=== PATIENT | male | born 1945 | race Caucasian/White ===

== ENCOUNTER → 2023-05-13 11:39 | Outpatient (REF) | payer MEDICARE, OTHER, SELFPAY ==
[2023-05-13 12:43] LABS: Blood Urea Nitrogen 18 mg/dl (9-20); Calcium 9.3 mg/dl (8.4-10.2); Carbon Dioxide 24 mmol/L (22-30); Chloride 106 mmol/L (98-107); Glucose 102 mg/dl (70-99); Potassium 5.3 mmol/L (3.5-5.1); Sodium 136 mmol/L (135-145); eGFR 56.23
== END ==
LOC: REG 11:39
PROVIDERS: ATTENDING PHYSICIAN Internal Medicine Cardiovascular Disease; FAMILY PHYSICIAN Family Medicine
DX: I50.20 Unspecified systolic (congestive) heart failure (principal)
CPT/HCPCS: 36415; 80048

== ENCOUNTER → 2023-08-11 09:40 | Outpatient (REF) | payer MEDICARE, OTHER, SELFPAY ==
[2023-08-11 11:11] LABS: Blood Urea Nitrogen 24 mg/dl (9-20); Calcium 9.2 mg/dl (8.4-10.2); Carbon Dioxide 25 mmol/L (22-30); Chloride 107 mmol/L (98-107); Glucose 106 mg/dl (70-99); Potassium 4.9 mmol/L (3.5-5.1); Sodium 140 mmol/L (135-145); eGFR 43.83
== END ==
LOC: REG 09:40
PROVIDERS: ATTENDING PHYSICIAN Internal Medicine Cardiovascular Disease; FAMILY PHYSICIAN Family Medicine
DX: I50.20 Unspecified systolic (congestive) heart failure (principal)
CPT/HCPCS: 36415; 80048

== ENCOUNTER → 2023-09-20 12:58 | Outpatient (REF) | payer MEDICARE, OTHER, SELFPAY | LOC: RCS 12:58 | PROVIDERS: ATTENDING PHYSICIAN Internal Medicine Cardiovascular Disease; FAMILY PHYSICIAN Family Medicine | DX: I50.20 Unspecified systolic (congestive) heart failure (principal) | CPT/HCPCS: 93306; Q9950 ==

== ENCOUNTER 2023-11-19 05:52 | Day surgery (SDC) | payer MEDICARE, OTHER, SELFPAY ==
[2023-10-27 09:20] VITALS: BMI 35.8
[2023-11-19] VITALS (9 sets, daily range): BP systolic 117–153; BP diastolic 66–79; BMI 35.6; BMI 35.2
[2023-11-19] MEDS: VANCOCIN 300 MG IV (06:59)
[2023-11-19] MEDS: VANCOCIN 300 ML IV (06:59)
--- NOTE | 2023-11-19 07:24 | W.ICD.CONTRA ---
Post ICD/LAST SORTER-D
-
History of IL?: No
LV Function
Left ventricular function study result?: Ejection Fraction </= 35%
ACEI/ARB/ARNI
Patient already on ACEI/ARB/ARNI: Yes
Beta-Stewart
Patient already on Beta Stewart: Yes
--- NOTE | 2023-11-19 12:52 | CM ---
Reviewed chart. Met with Mr. Lanza to review discharge plans. He states prior to admission he resides with his spouse in a three story condo. He states he has a full flight of steps to get to bedroom/full bathroom. He states he has a powder room
on the first floor. He states prior to admission he was independent with ambulation and adls. He states he does not have any DME in the home. He states he has a prescription plan and uses [facility]. Medical work-up in progress. The discharge
plan is to return home with his spouse when medically stable.
--- NOTE | 2023-11-19 17:15 | ITS.CL.ICD ---
Electrical Design Technician - ICD
Implantable Cardioverter Defibrillator
Procedure Report:
Date of Procedure: November 19, 2023.
Procedures: Bi-Ventricular ICD implant: Left Ventricular Lead placement, ICD implantation.
Indication: Class III CHF, LVEF 30-35%, 2) Bundle Branch Block, QRS 152 ms; 3) The patient's life expectancy exceeds one year. Heart failure duration just over 1.5 years.
Performing physician: Roque Encarnacion MD, [facility].
Implants:
Pulse Generator: Medtronic; Model# [id number]; Serial# [id number].
Atrial Lead: Medtronic: Model# 5076-52cm; Serial# [id number].
Right Ventricular Lead: Medtronic; Model# [id number]; Serial# [id number].
Left Ventricular Lead: Medtronic; Model# 4298-88cm; Serial# [id number].
Technique: A time out was performed. A 10 mL upper extremity venogram demonstrated patent left cephalic, axillary, and subclavian veins. The procedure site was identified. The patient was anesthetized by the anesthesia service. Preoperative
antibiotic per protocol was administered. The patient was prepped and draped in the usual fashion. Local anesthetic was applied to the left prepectoral subcutaneous tissue. A 3 inch incision was made along the left deltopectoral groove. Dissection
was carried to the fascia. The left cephalic vein was easily isolated and proximal and distal control with 2-0 Vicryl suture. Using a micropuncture needle to access the cephalic vein under direct visualization a wire was advanced into the central
circulation. A 7 Fr introducer was placed to allow two additional 0.35 J wires to be advanced and a retained guidewire technique was employed. The leads were introduced with hemostatic peel away introducer sheaths. The ventricular lead was placed
at the right ventricular mid septum. The ventricular lead was secured to the pectoralis muscle and fascia with two 0-silk sutures. The atrial lead was then placed in the right atrial appendage. The atrial lead was secured to the pectoralis muscle
and fascia with two 0-silk sutures. The coronary sinus was accessed with the aid of the Attain Command Sure Valve [id number] system with an extended hook. Coronary sinus venography revealed a lateral vein. The left ventricular lead was placed in the
lateral vein. The LV lead was secured to the pectoralis muscle and fascia. 8 volt pacing did not capture the diaphragm from any lead. A subcutaneous pocket was created with Bovie cautery. Hemostasis was excellent.The leads were appropriately
attached to the device. The pocket was irrigated with antibiotic solution. The device and leads were placed in the pocket. The incision was closed in three layers with absorbable suture. Steri-strips and an Aquacel dressing were placed. Estimated
blood loss: less than 5 ml. There were no complications. Fluoroscopy: 11.4 minutes and DAP 13.7 mGCM2. The device was then interrogated after skin closure.
System Analysis:
RA lead: P: 2.3 mV; Threshold: 0.7 V @ 0.4 ms; Impedance: 475 ohms.
RV lead: R: 12mV; Threshold: 0.6 V @ 0.4 ms; Impedance: 420 ohms.
LV lead (LV5=>LV3): R: 7 mV; Threshold: 0.75 V @ 0.4 ms; Impedance: 670 ohms.
There are multiple good vectors to choose from for LV pacing.
Final Programming: Tachy: VT/VF:188 bpm; Zachary: DDDR 60-120 bpm.
Conclusion: Uncomplicated Biventricular ICD implant. The BiV ICD system is MRI safe/conditional.
Recommendation: Routine post BiV ICD care.
cc: Zoe Murillo M.D.
[2023-11-19] MEDS: COREG 25 MG PO (20:44)
[2023-11-20 05:13] VITALS: BP 151/66
[2023-11-20 05:22] VITALS: BMI 35.2
[2023-11-20 05:40] LABS: Hematocrit 36.4 % (39.0-52.0); Hemoglobin 12.6 g/dL (13.0-18.0); Mean Corp Hgb Conc. 34.6 g/dL (33.0-37.0); Mean Corpuscular Hgb 30.2 pg (27.0-31.0); Mean Corpuscular Volume 87.3 fL (80.0-94.0); Mean Platelet Volume 10.5 fL (7.4-10.4); Platelet Count 157 10^3/uL (130-400); Red Blood Cell Count 4.17 10^6/uL (4.70-6.10); White Blood Cell Count 13.8 10^3/uL (4.8-10.8)
[2023-11-20 06:08] LABS: Blood Urea Nitrogen 23 mg/dl (9-20); Calcium 9.6 mg/dl (8.4-10.2); Carbon Dioxide 22 mmol/L (22-30); Chloride 105 mmol/L (98-107); Estimated Creatinine Clearance 60 ml/min; Glucose 126 mg/dl (70-99); Magnesium 1.9 mg/dl (1.6-2.3); Potassium 4.9 mmol/L (3.5-5.1); Sodium 139 mmol/L (135-145); eGFR 56.23
[2023-11-20] MEDS: COREG 25 MG PO (07:41)
[2023-11-20] MEDS: FLOMAX 0.4 MG PO (07:41)
[2023-11-20] MEDS: INSPRA 12.5 MG PO (07:41)
[2023-11-20] MEDS: ZESTRIL 40 MG PO (07:41)
[2023-11-20] MEDS: PROSCAR 5 MG PO (07:42)
[2023-11-20] MEDS: LOW STRENGTH ASPIRIN 81 MG PO (07:42)
[2023-11-20] MEDS: PROTONIX 40 MG PO (07:42)
[2023-11-20 08:17] VITALS: BP 135/57
--- NOTE | 2023-11-20 08:19 | PTCARENOTE ---
Assumed care. Patient in the chair. Left arm immobilizer, left chest wall pressure dressing dry and intact. V paced with underlying A-Fib with occasional PVC's. Denies pain or shortness of breath. Does report orthopnea improved overnight. VSS, call
garcia in reach
--- NOTE | 2023-11-20 09:08 | W.PN.UPDATE ---
Addendum entered and electronically signed by Mark Burch MD 11/20/23 13:40:
Patient seen and evaluated personally. Status post ANATOMIC PATHOLOGY ASSISTANT-D.
Chest x-ray shows no pneumothorax. EKG stays stable. Currently a sensed V paced rhythm.
Stable for discharge.
Original Note:
Update Note
Progress Note Update
Pt. s/p ANATOMIC PATHOLOGY ASSISTANT-D. Incision site stable. Pressure dressing removed. CXR no pneumothorax. Tele stable. No complaints.
EKG ASVP 71 bpm, PVC's
AAOx 3
Lungs clear
S1 S2 reg
No LE edema
L pectoral with dressing intact, no hematoma
d/c home
--- NOTE | 2023-11-20 09:13 | W.DS.TRANS ---
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
-
Discharge Instructions:
Discharge Diagnosis/Procedures Heart failure, post BiV ICD
Diet Low Cholesterol,2 Gram Sodium
Driving Restrictions No driving for 1 week
Bathing Restrictions OK to Shower
Specialty Instructions Weigh Daily
Instructions: *CBC Heart Failure Instructions
Stand-Alone Forms: DC Inst - Implanted Device
Changes to Home Medications: No
Discharge Medications:
DC Medications w/original date entered in [employer]
omeprazole magnesium 20 mg tablet,delayed release (Prilosec OTC) 20 mg PO DAILY Gastrointestinal issue 09/19/09
finasteride 5 mg tablet 5 mg PO DAILY Urinary issue 03/06/21
tamsulosin 0.4 mg capsule 0.4 mg PO DAILY Urinary issue 03/06/21
aspirin 81 mg chewable tablet 81 mg PO DAILY 07/30/22
furosemide 20 mg tablet 20 mg PO PRN PRN edema/fluid retention 07/30/22
B-complex with vitamin C 1 cap PO DAILY 10/26/23
Vitamin D3 1 cap PO DAILY 10/26/23
carvedilol 25 mg tablet 25 mg PO BID 10/26/23
lisinopril 40 mg tablet 40 mg PO DAILY 10/26/23
coenzyme Q10 100 mg capsule (CoQ-10) 100 mg PO DAILY 11/19/23
eplerenone 25 mg tablet 12.5 mg PO DAILY 11/19/23
Home Medication Changes
Pending Results: No
--- NOTE | 2023-11-20 10:13 | PTCARENOTE ---
Patient discharged to home, instructions given, verbalized understanding. IV and telemetry removed. Patient escorted to main lobby, driving is driving him home.
== END 2023-11-20 10:01 | disposition home or self-care (01) ==
LOC: CATH 05:52
PROVIDERS: Nurse Practitioner Adult Health; ATTENDING PHYSICIAN Internal Medicine Cardiovascular Disease; FAMILY PHYSICIAN Family Medicine
DX: I13.0 Hypertensive heart and chronic kidney disease with heart failure and stage 1 through stage 4 chronic kidney disease, or unspecified chronic kidney disease (principal); I50.22 Chronic systolic (congestive) heart failure; I44.7 Left bundle-branch block, unspecified; I42.8 Other cardiomyopathies; N18.31 Chronic kidney disease, stage 3a; I47.20 Ventricular tachycardia, unspecified; I35.1 Nonrheumatic aortic (valve) insufficiency; E78.5 Hyperlipidemia, unspecified; E66.9 Obesity, unspecified; Z68.35 Body mass index [BMI] 35.0-35.9, adult; N40.0 Benign prostatic hyperplasia without lower urinary tract symptoms; K21.9 Gastro-esophageal reflux disease without esophagitis; Z85.820 Personal history of malignant melanoma of skin; Z87.891 Personal history of nicotine dependence; Z79.82 Long term (current) use of aspirin
CPT/HCPCS: 33249; 33225; C1892; C1769; C1887; 71045; 80048; 83735; 85027; 93005; C1777; C1882; C1898; C1900; Q9967

== ENCOUNTER 2023-11-26 10:30 | Emergency (ER) | payer MEDICARE, OTHER, SELFPAY ==
[2023-11-26 10:36] VITALS: BP 147/73
[2023-11-26 10:55] VITALS: BP 154/81
[2023-11-26 11:00] VITALS: BP 142/68
[2023-11-26] MEDS: OFIRMEV 100 IV (11:29)
[2023-11-26 11:33] LABS: % Basophils 0.6 % (0-2); % Eosinophils 2.3 % (0-6); % Immature Granulocytes 0.9 % (0-0.5); % Lymphocytes 13.4 % (20.5-51.1); % Monocytes 7.4 % (1.7-9.3); % Neutrophils 75.4 % (42.2-75.2); Absolute Basophils 0.1 10^3/uL (0-0.2); Absolute Eosinophils 0.3 10^3/uL (0-0.7); Absolute Immature Granulocytes 0.1 10^3/uL (0-0.05); Absolute Lymphocytes 1.4 10^3/uL (1.2-3.4); Absolute Monocytes 0.8 10^3/uL (0.1-0.6); Hematocrit 39.3 % (39.0-52.0); Hemoglobin 13.5 g/dL (13.0-18.0); Mean Corp Hgb Conc. 34.4 g/dL (33.0-37.0); Mean Corpuscular Volume 90.3 fL (80.0-94.0); Mean Platelet Volume 10.1 fL (7.4-10.4); Nucleated Red Blood Cells % 0 % (-); Platelet Count 144 10^3/uL (130-400); Red Blood Cell Count 4.35 10^6/uL (4.70-6.10); Red Cell Dist. Width 13.9 % (11.5-14.5); White Blood Cell Count 10.7 10^3/uL (4.8-10.8)
[2023-11-26 11:44] LABS: INR 1.09
[2023-11-26 11:51] LABS: Blood Urea Nitrogen 22 mg/dl (9-20); Calcium 9.5 mg/dl (8.4-10.2); Carbon Dioxide 26 mmol/L (22-30); Chloride 104 mmol/L (98-107); Glucose 123 mg/dl (70-99); Potassium 5.6 mmol/L (3.5-5.1); Sodium 140 mmol/L (135-145); eGFR 51.45
[2023-11-26 12:00] VITALS: BP 161/71
--- NOTE | 2023-11-26 12:29 | W.PN.UPDATE ---
Update Note
Progress Note Update
EP Note:
Old expected ecchymosis. New small hematoma started today. Incision line looks very good. Skin is not tight. Pain better after IV Acetominophen. CXR good. ICD check ([facility]) pending. Pressure being applied. If hematoma does not significantly
expand and pain remains acceptable I feel that he can go home. Will arrange f/u in our office.
[2023-11-26 13:00] VITALS: BP 160/74
[2023-11-26 13:09] LABS: Potassium 5.4 mmol/L (3.5-5.1)
[2023-11-26 14:00] VITALS: BP 160/67
--- NOTE | 2023-11-26 14:35 | ED.GENMED ---
History of Present Illness
General
Chief Complaint: Post Operative Problem(s)
Time Seen by Provider: 11/26/23 10:59
History of Present Illness
History of Present Illness:
Pacemaker placed 1 week ago. Was doing well till this morning when he developed sudden pain and swelling at the site. No shortness of breath no lightheadedness no syncope
Past History
Past History
ED Past Medical History: Asthma, GERD and HTN
ED Past Surgical History: None
Social History
Tobacco: Former smoker
Alcohol: Occasional
Personal:
Living: with family
Phy Exam
Physical Exam
Physical Exam:
GENERAL: Alert and oriented in no apparent distress
EYE: Orbits normal.
NECK: Supple
CARDIAC: Regular rate and rhythm without any obvious murmurs. Pacemaker with Steri-Strips left upper chest wall. Surrounding ecchymosis in various stages of healing with moderate-sized hematoma to the left upper anterior chest wall extending
towards the axilla
LUNGS: Clear breath sounds,normal
ABDOMEN: Soft, without focal tenderness or distention
NEUROLOGICAL: Alert and oriented , grossly non-focal
SKIN: Warm and dry, no rash or lesion, no discoloration, skin intact.
MUSCULOSKELETAL: No edema,no deformity.Good color
PSYCH: Normal and appropriate interaction.
Course
Orders/Labs/Results
Orders:
Orders
11/26/23 11:09
IV Insert/Care/Rem.- Treatment PRN
Acetaminophen 1000MG/100Ml [Ofirmev] 1,000 mg in 100 ml IV ONCE
Acetaminophen IV Indication:: ED Narcotic Naive Pt-ONCE
11/26/23 11:10
Cardiac Monitoring- Treatment ONCE
IV Insert/Care/Rem.- Treatment PRN
11/26/23 11:11
CXR Port [CR Chest Portable - 1 View] Urgent
Comment:
Reason For Exam: Pacer placement. Local hematoma
Reason Study Needs to be Portable: Unable to Transport
11/26/23 11:22
Basic Metabolic Panel Urgent
Complete Blood Count/With Diff Urgent
PTT Urgent
Prothrombin Time Urgent
11/26/23 11:23
Type+Screen Urgent
11/26/23 12:34
Potassium Urgent
Abnormal Lab Results
11/26/23 11/26/23
11:22 12:34
RBC 4.35 L 10^6/uL
(4.70-6.10)
Abs Immat Gran (auto) 0.1 H 10^3/uL
(0-0.05)
Absolute Neuts (auto) 8.0 H 10^3/uL
(1.4-6.5)
Absolute Monos (auto) 0.8 H 10^3/uL
(0.1-0.6)
Immature Gran % 0.9 H %
(0-0.5)
Neutrophils % 75.4 H %
(42.2-75.2)
Lymphocytes % 13.4 L %
(20.5-51.1)
Potassium 5.6 H mmol/L 5.4 H mmol/L
(3.5-5.1) (3.5-5.1)
BUN 22 H mg/dl
(9-20)
Creatinine 1.4 H mg/dL
(0.7-1.3)
Glucose 123 H mg/dl
(70-99)
11/26/23 11:22
11/26/23 12:34
Vital Signs
Initial and Last Documented VS:
Initial Vital Signs
Temp Pulse Resp BP Pulse Ox
98.4 F 72 18 147/73 96
11/26/23 10:36 11/26/23 10:36 11/26/23 10:36 11/26/23 10:36 11/26/23 10:36
Last Documented Vital Signs
Temp Pulse Resp BP Pulse Ox
98.4 F 64 12 160/67 97
11/26/23 10:36 11/26/23 14:00 11/26/23 14:00 11/26/23 14:00 11/26/23 14:00
*Critical Care Note
Total Time (30-74mins, 75-104mins- exclusive of procedures): Not Applicable
Update Note
Update Note:
Take pacemaker interrogation functioning normally. Patient is remained stable. No progressive hematoma. Pain is minimal at this time. Cleared by EP for discharge. Potassium minimally elevated. Has been elevated in the past and self resolved.
Will monitor this as an outpatient
ED Attending Note
-
Portions of this chart may have been created with voice recognition software.� Occasional wrong word or��sound alike� substitutions may have occurred due to the inherent limitations of voice recognition software.
Discharge Plan
Departure
Patient Disposition: Home (Routine Discharge)
Date of Disposition: 11/26/23
Time of Disposition: 14:36
Patient with high blood pressure during this ER visit?: Yes
Discharge Problem:
Pacemaker hematoma, Mild hyperkalemia
Instructions: Bleeding After Surgery, Hyperkalemia, BLOOD PRESSURE
Prescriptions:
No Action
omeprazole magnesium [Prilosec OTC] 20 MG tablet,delayed release (DR/EC)
20 mg PO DAILY
tamsulosin 0.4 MG capsule
0.4 mg PO DAILY
finasteride 5 MG tablet
5 mg PO DAILY
aspirin 81 mg Tablet,Chewable
81 mg PO DAILY
furosemide 20 mg Tablet
20 mg PO PRN PRN (Reason: edema/fluid retention)
carvedilol 25 mg Tablet
25 mg PO BID
lisinopril 40 mg Tablet
40 mg PO DAILY
B-complex with vitamin C Capsule
1 cap PO DAILY
Vitamin D3
1 cap PO DAILY
eplerenone 25 mg Tablet
12.5 mg PO DAILY
coenzyme Q10 [CoQ-10] 100 mg Capsule
100 mg PO DAILY
Referrals:
Zoe Murillo MD [Family Provider] - Follow up in 2-3 days
Activity Restrictions/Additional Instructions:
Follow-up next week with cardiology
Get your potassium level repeated in 4 to 5 days
Avoid foods with significant potassium and stay well-hydrated
Ice to the chest wall
Return sooner with increased pain increased swelling fever shortness of breath chest pain lightheadedness or any other concerning symptoms
Interventions
Interventions:
*Risk Screen - Suicide Last Done: 11/26/23 10:36
*General Assessment Last Done: 11/26/23 10:36
*Neglect/Abuse Screening Last Done: 11/26/23 10:36
ED- Fall Risk Assessment Last Done: 11/26/23 10:59
*ED COVID-19 Vaccine History Last Done: 11/26/23 10:57
ED-Skin Assessment Last Done: 11/26/23 10:57
Discharge Date and Time
Print Language: GUYANESE
== END 2023-11-26 15:00 | disposition home or self-care (01) ==
LOC: EMR 10:30
PROVIDERS: EMERGENCY PHYSICIAN Emergency Medicine; FAMILY PHYSICIAN Family Medicine
DX: S20.219A Contusion of unspecified front wall of thorax, initial encounter (principal); E87.5 Hyperkalemia; Y71.2 Prosthetic and other implants, materials and accessory cardiovascular devices associated with adverse incidents; J45.909 Unspecified asthma, uncomplicated; K21.9 Gastro-esophageal reflux disease without esophagitis; I10 Essential (primary) hypertension; Z87.891 Personal history of nicotine dependence; Z95.810 Presence of automatic (implantable) cardiac defibrillator
CPT/HCPCS: 99283; 96374; 71045; 80048; 84132; 85025; 85610; 85730; 86850; 86900; 86901

== ENCOUNTER → 2023-12-17 09:55 | Outpatient (REF) | payer MEDICARE, OTHER, SELFPAY ==
[2023-12-17 11:04] LABS: % Basophils 0.8 % (0-2); % Eosinophils 3.4 % (0-6); % Immature Granulocytes 0.6 % (0-0.5); % Lymphocytes 24.1 % (20.5-51.1); % Monocytes 7.3 % (1.7-9.3); % Neutrophils 63.8 % (42.2-75.2); Absolute Basophils 0.1 10^3/uL (0-0.2); Absolute Eosinophils 0.3 10^3/uL (0-0.7); Absolute Immature Granulocytes 0.1 10^3/uL (0-0.05); Absolute Lymphocytes 1.9 10^3/uL (1.2-3.4); Absolute Monocytes 0.6 10^3/uL (0.1-0.6); Absolute Neutrophils 5.1 10^3/uL (1.4-6.5); Hematocrit 39.5 % (39.0-52.0); Hemoglobin 13.2 g/dL (13.0-18.0); Mean Corp Hgb Conc. 33.4 g/dL (33.0-37.0); Mean Corpuscular Hgb 30.1 pg (27.0-31.0); Mean Corpuscular Volume 90.2 fL (80.0-94.0); Mean Platelet Volume 10.3 fL (7.4-10.4); Nucleated Red Blood Cells % 0 % (-); Platelet Count 166 10^3/uL (130-400); Red Blood Cell Count 4.38 10^6/uL (4.70-6.10)
[2023-12-17 11:21] LABS: NT-proBNP 604 pg/ml
[2023-12-17 11:55] LABS: Blood Urea Nitrogen 24 mg/dl (9-20); Glucose 98 mg/dl (70-99)
[2023-12-17 11:56] LABS: ALT (SGPT) 17 U/L (0-50); AST (SGOT) 19 U/L (17-59); Albumin 4.2 g/dl (3.5-5.0); Alkaline Phosphatase 59 U/L (38-126); Calcium 9.4 mg/dl (8.4-10.2); Carbon Dioxide 26 mmol/L (22-30); Chloride 104 mmol/L (98-107); HDL Cholesterol 27 mg/dl; LDL Cholesterol, Calculated 107 mg/dl; Potassium 5.2 mmol/L (3.5-5.1); Sodium 140 mmol/L (135-145); Total Bilirubin 0.5 mg/dl (0.2-1.3); Total Cholesterol 170 mg/dl (50-199); Total Protein 6.5 g/dl (6.3-8.2); Triglyceride 184 mg/dl (10-149); Very Low Density Lipoprotein 36 mg/dl (0-30); eGFR 43.83
[2023-12-17 12:22] LABS: PSA, Total - Screen 0.64 ng/ml (0.0-4.0); TSH 1.32 uIU/ml (0.47-4.68)
[2023-12-17 13:58] LABS: Glycohemoglobin (HgbA1c) 5.5 % (4.0-5.6)
== END ==
LOC: REG 09:55
PROVIDERS: ATTENDING PHYSICIAN Internal Medicine Cardiovascular Disease; FAMILY PHYSICIAN Family Medicine
DX: I50.20 Unspecified systolic (congestive) heart failure (principal); Z00.00 Encounter for general adult medical examination without abnormal findings; I42.8 Other cardiomyopathies; I10 Essential (primary) hypertension; E78.2 Mixed hyperlipidemia; Z13.29 Encounter for screening for other suspected endocrine disorder; Z12.5 Encounter for screening for malignant neoplasm of prostate; R73.01 Impaired fasting glucose
CPT/HCPCS: 36415; 80053; 80061; 83036; 83880; 84443; 85025; G0103

== ENCOUNTER → 2024-01-10 14:38 | Outpatient (REF) | payer MEDICARE, OTHER, SELFPAY | LOC: HWRAD 14:38 | PROVIDERS: ATTENDING PHYSICIAN Specialist; FAMILY PHYSICIAN Family Medicine | DX: N18.30 Chronic kidney disease, stage 3 unspecified (principal) | CPT/HCPCS: 76770 ==

== ENCOUNTER → 2024-03-08 12:37 | Outpatient (REF) | payer MEDICARE, OTHER, SELFPAY | LOC: HWRAD 12:37 | PROVIDERS: ATTENDING PHYSICIAN Internal Medicine Critical Care Medicine; FAMILY PHYSICIAN Family Medicine | DX: R06.09 Other forms of dyspnea (principal); R91.8 Other nonspecific abnormal finding of lung field; R93.89 Abnormal findings on diagnostic imaging of other specified body structures | CPT/HCPCS: 71250 ==

== ENCOUNTER → 2024-03-15 10:55 | Outpatient (REF) | payer MEDICARE, OTHER, SELFPAY ==
[2024-03-15 12:06] LABS: % Basophils 0.7 % (0-2); % Eosinophils 2.7 % (0-6); % Immature Granulocytes 0.3 % (0-0.5); % Lymphocytes 23.3 % (20.5-51.1); % Monocytes 8.4 % (1.7-9.3); % Neutrophils 64.6 % (42.2-75.2); Absolute Basophils 0.1 10^3/uL (0-0.2); Absolute Eosinophils 0.2 10^3/uL (0-0.7); Absolute Monocytes 0.7 10^3/uL (0.1-0.6); Absolute Neutrophils 5.6 10^3/uL (1.4-6.5); Hematocrit 44.8 % (39.0-52.0); Hemoglobin 15.1 g/dL (13.0-18.0); Mean Corp Hgb Conc. 33.7 g/dL (33.0-37.0); Mean Corpuscular Hgb 29.2 pg (27.0-31.0); Mean Corpuscular Volume 86.7 fL (80.0-94.0); Mean Platelet Volume 10.8 fL (7.4-10.4); Nucleated Red Blood Cells % 0 % (-); Platelet Count 165 10^3/uL (130-400); Red Blood Cell Count 5.17 10^6/uL (4.70-6.10); Red Cell Dist. Width 14.1 % (11.5-14.5); White Blood Cell Count 8.6 10^3/uL (4.8-10.8)
[2024-03-15 12:54] LABS: NT-proBNP 182 pg/ml
[2024-03-15 12:56] LABS: Blood Urea Nitrogen 24 mg/dl (9-20); Calcium 9.2 mg/dl (8.4-10.2); Carbon Dioxide 25 mmol/L (22-30); Chloride 102 mmol/L (98-107); Glucose 105 mg/dl (70-99); Potassium 5.3 mmol/L (3.5-5.1); Sodium 138 mmol/L (135-145); eGFR 47.36
== END ==
LOC: REG 10:55
PROVIDERS: ATTENDING PHYSICIAN Internal Medicine Cardiovascular Disease; FAMILY PHYSICIAN Family Medicine
DX: I50.20 Unspecified systolic (congestive) heart failure (principal); R79.89 Other specified abnormal findings of blood chemistry
CPT/HCPCS: 36415; 80048; 83880; 85025

== ENCOUNTER → 2024-03-22 14:15 | Outpatient (REF) | payer MEDICARE, OTHER, SELFPAY | LOC: DHSLP 14:15 | PROVIDERS: ATTENDING PHYSICIAN Internal Medicine Critical Care Medicine; FAMILY PHYSICIAN Family Medicine | DX: G47.33 Obstructive sleep apnea (adult) (pediatric) (principal) | CPT/HCPCS: 95806 ==

== ENCOUNTER → 2024-04-05 13:57 | Outpatient (REF) | payer MEDICARE, OTHER, SELFPAY | LOC: HWRCS 13:57 | PROVIDERS: ATTENDING PHYSICIAN Nurse Practitioner Gerontology; FAMILY PHYSICIAN Family Medicine | DX: R06.02 Shortness of breath (principal) | CPT/HCPCS: 93306 ==

== ENCOUNTER → 2024-04-19 10:33 | Outpatient (REF) | payer MEDICARE, OTHER, SELFPAY ==
[2024-04-19 11:51] LABS: Blood Urea Nitrogen 27 mg/dl (9-20); Calcium 9.6 mg/dl (8.4-10.2); Carbon Dioxide 26 mmol/L (22-30); Chloride 102 mmol/L (98-107); Glucose 106 mg/dl (70-99); Potassium 5.2 mmol/L (3.5-5.1); Sodium 137 mmol/L (135-145); eGFR 47.06
== END ==
LOC: REG 10:33
PROVIDERS: ATTENDING PHYSICIAN Nurse Practitioner Gerontology; FAMILY PHYSICIAN Family Medicine
DX: R06.02 Shortness of breath (principal)
CPT/HCPCS: 36415; 80048

== ENCOUNTER → 2024-05-18 13:44 | Outpatient (REF) | payer MEDICARE, OTHER, SELFPAY | LOC: DHSLP 13:44 | PROVIDERS: ATTENDING PHYSICIAN Internal Medicine Critical Care Medicine; FAMILY PHYSICIAN Family Medicine | DX: G47.33 Obstructive sleep apnea (adult) (pediatric) (principal); G47.31 Primary central sleep apnea; G47.61 Periodic limb movement disorder; G47.00 Insomnia, unspecified | CPT/HCPCS: 95811 ==

== ENCOUNTER → 2024-06-05 09:56 | Outpatient (REF) | payer MEDICARE, OTHER, SELFPAY ==
[2024-06-05 11:56] LABS: % Basophils 0.6 % (0-2); % Eosinophils 2.4 % (0-6); % Immature Granulocytes 0.5 % (0-0.5); % Lymphocytes 23.1 % (20.5-51.1); % Neutrophils 64.4 % (42.2-75.2); Absolute Basophils 0.1 10^3/uL (0-0.2); Absolute Eosinophils 0.2 10^3/uL (0-0.7); Absolute Lymphocytes 1.9 10^3/uL (1.2-3.4); Absolute Monocytes 0.7 10^3/uL (0.1-0.6); Absolute Neutrophils 5.3 10^3/uL (1.4-6.5); Hematocrit 44.9 % (39.0-52.0); Hemoglobin 14.9 g/dL (13.0-18.0); Mean Corp Hgb Conc. 33.2 g/dL (33.0-37.0); Mean Corpuscular Volume 87.5 fL (80.0-94.0); Mean Platelet Volume 10.1 fL (7.4-10.4); Nucleated Red Blood Cells % 0 % (-); Platelet Count 156 10^3/uL (130-400); Red Blood Cell Count 5.13 10^6/uL (4.70-6.10); Red Cell Dist. Width 14.7 % (11.5-14.5); White Blood Cell Count 8.2 10^3/uL (4.8-10.8)
[2024-06-05 11:59] LABS: Protein/creatinine Ratio 0.1; Urine Protein 15 mg/dl
[2024-06-05 14:52] LABS: Blood Urea Nitrogen 19 mg/dl (9-20); Calcium 9.2 mg/dl (8.4-10.2); Carbon Dioxide 23 mmol/L (22-30); Chloride 107 mmol/L (98-107); Glucose 106 mg/dl (70-99); Sodium 141 mmol/L (135-145); eGFR 43.56
[2024-06-07 00:47] LABS: Alternaria tenuis <0.10 kU/L (<=0.34); Aspergillus fumigatus <0.10 kU/L (<=0.34); Bermuda Grass <0.10 kU/L (<=0.34); Birch Tree <0.10 kU/L (<=0.34); Box Elder/Maple Tree <0.10 kU/L (<=0.34); Cat Epithelium/Dander <0.10 kU/L (<=0.34); Common Pigweed <0.10 kU/L (<=0.34); Common/Short Ragweed <0.10 kU/L (<=0.34); Cottonwood Tree <0.10 kU/L (<=0.34); Dermatophagoides farinae <0.10 kU/L (<=0.34); Dermatophagoides pteronyssinus <0.10 kU/L (<=0.34); Dog Dander <0.10 kU/L (<=0.34); Elm Tree <0.10 kU/L (<=0.34); German Cockroach <0.10 kU/L (<=0.34); Hormodendrum <0.10 kU/L (<=0.34); IgE 6 kU/L (<=214); Mountain Cedar Tree <0.10 kU/L (<=0.34); Mouse Epithelium <0.10 kU/L (<=0.34); Mucor racemosus <0.10 kU/L (<=0.34); Mugwort Weed <0.10 kU/L (<=0.34); Oak Tree <0.10 kU/L (<=0.34); Penicillium notatum <0.10 kU/L (<=0.34); Sheep Sorrel Weed <0.10 kU/L (<=0.34); Sycamore Tree <0.10 kU/L (<=0.34); Timothy Grass <0.10 kU/L (<=0.34); Walnut Tree <0.10 kU/L (<=0.34); White Ash Tree <0.10 kU/L (<=0.34); White Mulberry Tree <0.10 kU/L (<=0.34)
== END ==
LOC: REG 09:56
PROVIDERS: ATTENDING PHYSICIAN Internal Medicine Nephrology; FAMILY PHYSICIAN Family Medicine; REFERRING PHYSICIAN Internal Medicine Critical Care Medicine
DX: N18.31 Chronic kidney disease, stage 3a (principal); R06.02 Shortness of breath; J45.50 Severe persistent asthma, uncomplicated
CPT/HCPCS: 36415; 80048; 82570; 82785; 84156; 85025; 86003

== ENCOUNTER → 2024-10-17 08:44 | Outpatient (REF) | payer MEDICARE, OTHER, SELFPAY | LOC: DHSLP 08:44 | PROVIDERS: ATTENDING PHYSICIAN Internal Medicine; FAMILY PHYSICIAN Family Medicine | DX: G47.33 Obstructive sleep apnea (adult) (pediatric) (principal); G47.61 Periodic limb movement disorder | CPT/HCPCS: 95811 ==

== ENCOUNTER → 2024-11-02 12:46 | Outpatient (REF) | payer MEDICARE, OTHER, SELFPAY | LOC: RCS 12:46 | PROVIDERS: ATTENDING PHYSICIAN Internal Medicine Cardiovascular Disease; FAMILY PHYSICIAN Family Medicine | DX: I50.20 Unspecified systolic (congestive) heart failure (principal); I77.810 Thoracic aortic ectasia | CPT/HCPCS: 93307; Q9957 ==

== ENCOUNTER → 2024-11-16 09:22 | Outpatient (REF) | payer MEDICARE, OTHER, SELFPAY ==
[2024-11-16 10:44] LABS: Hematocrit 43.7 % (39.0-52.0); Hemoglobin 14.8 g/dL (13.0-18.0); Mean Corp Hgb Conc. 33.9 g/dL (33.0-37.0); Mean Corpuscular Volume 90.5 fL (80.0-94.0); Nucleated Red Blood Cells % 0 % (-); Platelet Count 158 10^3/uL (130-400); Red Cell Dist. Width 15.0 % (11.5-14.5)
[2024-11-16 11:15] LABS: ALT (SGPT) 19 U/L (0-50); AST (SGOT) 20 U/L (17-59); Albumin 4.3 g/dl (3.5-5.0); Alkaline Phosphatase 66 U/L (38-126); Blood Urea Nitrogen 24 mg/dl (9-20); Calcium 9.1 mg/dl (8.4-10.2); Carbon Dioxide 26 mmol/L (22-30); Chloride 107 mmol/L (98-107); Glucose 101 mg/dl (70-99); HDL Cholesterol 26 mg/dl; LDL Cholesterol, Calculated 97 mg/dl; Potassium 5.0 mmol/L (3.5-5.1); Sodium 139 mmol/L (135-145); Total Protein 6.7 g/dl (6.3-8.2); Very Low Density Lipoprotein 35 mg/dl (0-30); eGFR 37.82
[2024-11-16 11:43] LABS: PSA, Total - Screen 1.77 ng/ml (0.0-4.0); TSH 1.26 uIU/ml (0.47-4.68)
[2024-11-16 11:48] LABS: Glycohemoglobin (HgbA1c) 5.8 % (4.0-5.6)
== END ==
LOC: REG 09:22
PROVIDERS: ATTENDING PHYSICIAN Family Medicine
DX: I10 Essential (primary) hypertension (principal); E78.2 Mixed hyperlipidemia; R73.01 Impaired fasting glucose; N18.32 Chronic kidney disease, stage 3b; Z00.00 Encounter for general adult medical examination without abnormal findings; Z12.5 Encounter for screening for malignant neoplasm of prostate
CPT/HCPCS: 36415; 80053; 80061; 83036; 84443; 85025; G0103

== ENCOUNTER → 2024-12-06 10:21 | Outpatient (REF) | payer MEDICARE, OTHER, SELFPAY ==
[2024-12-06 11:52] LABS: ALT (SGPT) 20 U/L (0-50); AST (SGOT) 20 U/L (17-59); Albumin 4.4 g/dl (3.5-5.0); Alkaline Phosphatase 66 U/L (38-126); Blood Urea Nitrogen 25 mg/dl (9-20); Calcium 9.3 mg/dl (8.4-10.2); Carbon Dioxide 25 mmol/L (22-30); Chloride 106 mmol/L (98-107); Glucose 104 mg/dl (70-99); Potassium 5.2 mmol/L (3.5-5.1); Sodium 138 mmol/L (135-145); Total Protein 7.0 g/dl (6.3-8.2); eGFR 51.13
== END ==
LOC: REG 10:21
PROVIDERS: ATTENDING PHYSICIAN Internal Medicine Nephrology; FAMILY PHYSICIAN Family Medicine
DX: N18.31 Chronic kidney disease, stage 3a (principal)
CPT/HCPCS: 36415; 80053; 83970